=== PATIENT | male | born 1995 | race African-American/Black ===

== ENCOUNTER 2023-07-05 22:45 | Emergency (ER) | payer MEDICAID ==
[~2023-07-05] VITALS: Ht 180.3 cm; Wt 100.0 kg
[2023-07-05 22:56] VITALS: BP 159/90; PULSE 107; RESP 18; TEMP 98.2; O2SAT 97
[2023-07-05] MEDS ORDERED: HYDR-459 MT (22:57)
[2023-07-05] MEDS ORDERED: HYDROXYZINE 25MG TABLET PO ONE (23:00)
== END 2023-07-06 00:15 | disposition home or self-care (01) ==
LOC: EDSEX 22:45 → ER 22:45
DX: F41.9 Anxiety disorder, unspecified (principal); Z00.00 Encounter for general adult medical examination without abnormal findings
CPT/HCPCS: 99283

== ENCOUNTER 2024-12-18 15:51 | Emergency (ER) | payer MEDICAID, OTHER ==
[~2024-12-18] VITALS: Ht 182.9 cm; Wt 87.0 kg
[~2024-12-18 15:51] MED LIST: HYDR-459 MT
[2024-12-18 16:01] VITALS: O2SAT 98
[2024-12-18] MEDS: DIPHENHYDRAMINE 25MG CAPSULE PO ONE (16:21)
[2024-12-18] MEDS: PREDNISONE 20MG TABLET PO ONE (16:21)
[2024-12-18] MEDS: FAMOTIDINE 20MG TABLET PO ONE (16:21)
[2024-12-18] MEDS ORDERED: DIPH25TA62 MT (17:03)
[2024-12-18] MEDS ORDERED: P50 MT (17:03)
[2024-12-18 17:24] VITALS: BP 131/82; PULSE 72; RESP 18; TEMP 37.1; O2SAT 98
== END 2024-12-18 17:25 | disposition home or self-care (01) ==
LOC: ER 15:51
DX: T78.40XA Allergy, unspecified, initial encounter (principal); R21 Rash and other nonspecific skin eruption; F20.9 Schizophrenia, unspecified; F31.9 Bipolar disorder, unspecified; Z79.899 Other long term (current) drug therapy; Y92.89 Other specified places as the place of occurrence of the external cause
CPT/HCPCS: 99284; Q0163; J7512